=== PATIENT | male | born 1945 | race Caucasian/White ===

== ENCOUNTER 2023-01-23 14:56 | Observation (INO) | payer MEDICARE ==
--- NOTE | 2023-01-23 15:27 | ED ---
General Adult HPI - General Chief complaint: Chest Pain Stated complaint: Chest Pain/SOB Time Seen by Provider: 01/23/23 15:24 Source: patient, RN notes reviewed, old records reviewed Mode of arrival: wheelchair Limitations: no limitations - History of Present Illness Initial comments: 77-year-old male presents for evaluation of chest pain, dyspnea, and lightheadedness. Patient's symptoms began 3 days ago with slight chest discomfort. Just prior to arrival he developed worsening chest pain which is substernal accompanied by difficulty breathing and lightheadedness. Patient has history of CML and myelodysplastic syndrome. He states he is on a confusion but is uncertain of the drug that he is currently receiving. He does report dark stools and states that he is currently on iron. No recent change in stool color or consistency. - Related Data Home Medications Medication Instructions Recorded Confirmed Cholecalciferol [Vitamin D3 (25 50 mcg PO DAILY 01/23/23 01/23/23 Mcg = 1000 Iu)] Cyclobenzaprine [Flexeril] 5 mg PO HS 01/23/23 01/23/23 Ferrous Sulfate [Iron] 325 mg PO BID 01/23/23 01/23/23 Losartan Potassium [Cozaar] 100 mg PO DAILY 01/23/23 01/23/23 Rosuvastatin Calcium 5 mg PO HS 01/23/23 01/23/23 amLODIPine [Norvasc] 10 mg PO HS 01/23/23 01/23/23 hydroCHLOROthiazide [Hydrodiuril] 12.5 mg PO DAILY 01/23/23 01/23/23 Allergies Allergy/AdvReac Type Severity Reaction Status Date / Time influenza virus vaccine, Allergy Anaphylaxis Verified 01/23/23 16:52 specific mushroom Allergy Swelling Verified 01/23/23 16:52 Review of Systems ROS Statement: Those systems with pertinent positive or pertinent negative responses have been documented in the HPI. ROS Other: All systems not noted in ROS Statement are negative. Past Medical History Past Medical History: Cancer, Hypertension Additional Past Medical History / Comment(s): CMML History of Any Multi-Drug Resistant Organisms: None Reported Past Surgical History: Hernia Repair Additional Past Surgical History / Comment(s): nose, cataracts. 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 Absent: tenderness, meningismus Respiratory exam: Absent: respiratory distress, wheezes, rales Cardiovascular Exam: Present: normal rhythm, tachycardia GI/Abdominal exam: Present: soft. Absent: distended, tenderness, guarding Extremities exam: Present: normal inspection, normal capillary refill. Absent: pedal edema, calf tenderness Neurological exam: Present: alert, oriented X3, CN II-XII intact. Absent: motor sensory deficit Skin exam: Present: dry, pallor Course Vital Signs 01/23/23 14:59 Temperature 97.8 F Pulse Rate 111 H Respiratory 22 Rate Blood Pressure 142/84 O2 Sat by Pulse 100 Oximetry Medical Decision Making - Medical Decision Making Was pt. sent in by a medical professional or institution (, PA, SENIOR QUALITY CONTROL INSPECTOR, urgent care, hospital, or retirement...) When possible be specific @ -No Did you speak to anyone other than the patient for history (EMS, parent, family, police, friend...)? What history was obtained from this source @ -No Did you review nursing and triage notes (agree or disagree)? Why? @ -I reviewed and agree with nursing and triage notes Were old charts reviewed (outside hosp., previous admission, EMS record, old EKG, old radiological studies, urgent care reports/EKG's, retirement records)? Report findings @ -No old charts were reviewed Differential Diagnosis (chest pain, altered mental status, abdominal pain women, abdominal pain men, vaginal bleeding, weakness, fever, dyspnea, syncope, head ache, dizziness, GI bleed, back pain, seizure, CVA, palpatations, mental health, musculoskeletal)? @ -Differential Dyspnea: Coronary syndrome, arrhythmia, tamponade, asthma, COPD, pulmonary embolism, pneumonia, pneumothorax, pulmonary effusion, anaphylaxis, diabetic ketoacidosis, flailed chest, pulmonary contusion, diaphragmatic rupture, anemia, neuromuscular, this is not meant to be an all-inclusive list. EKG interpreted by me (3pts min.). @ -EKG: Sinus tachycardia with a rate of 107, occasional PVC, NH interval 182, QRS duration 80, QTc 383, no ST segment elevation T waves are upright X-rays interpreted by me (1pt min.). @ -Negative for pneumothorax or acute cardiac primary findings CT interpreted by me (1pt min.). @ -[Angiography negative for pulmonary embolism U/S interpreted by me (1pt. min.). @ -None done What testing was considered but not performed or refused? (CT, X-rays, U/S, labs)? Why? @ -None What meds were considered but not given or refused? Why? @ -None Did you discuss the management of the patient with other professionals (professionals i.e. , PA, SENIOR QUALITY CONTROL INSPECTOR, lab, RT, psych nurse, addiction social worker, doping supervisor, teacher, chief technology officer, child welfare caseworker)? Give summary @ -EMH Was smoking cessation discussed for >3mins.? @ -No Was critical care preformed (if so, how long)? @ -No Were there social determinants of health that impacted care today? How? (Homelessness, low income, unemployed, alcoholism, drug addiction, transportation, low edu. Level, literacy, decrease access to med. care, penitentiary, rehab)? @ -No Was there de-escalation of care discussed even if they declined (Discuss DNR or withdrawal of care, Hospice)? DNR status @ -No What co-morbidities impacted this encounter? (DM, HTN, Smoking, COPD, CAD, Cancer, CVA, ARF, Chemo, Hep., AIDS, mental health diagnosis, sleep apnea, morbid obesity)? @ -[MDS, CML Was patient admitted / discharged? Hospital course, mention meds given and route, prescriptions, significant lab abnormalities, going to OR and other pertinent info. @ -77-year-old male presenting for evaluation of chest pain, dyspnea, and lightheadedness. EKG sinus tachycardia. Patient has an anemia of 8 which she states is chronic. Patient has normal electrolytes, negative initial troponin. His d-dimer is significantly elevated and CT angiography is obtained which is negative for pulmonary embolism. Patient will be admitted for serial cardiac enzymes, telemetry, cardiology consultation. Echo has been ordered. Undiagnosed new problem with uncertain prognosis? @ -No Drug Therapy requiring intensive monitoring for toxicity (Heparin, Nitro, Insulin, Cardizem)? @ -No Were any procedures done? @ -No Diagnosis/symptom? @ -[Chest pain Acute, or Chronic, or Acute on Chronic? @ -[Acute Uncomplicated (without systemic symptoms) or Complicated (systemic symptoms)? @ -default Side effects of treatment? @ -No Exacerbation, Progression, or Severe Exacerbation? @ -No Poses a threat to life or bodily function? How? (Chest pain, [place], [place], pneumonia, PE, COPD, DKA, ARF, appy, cholecystitis, CVA, Diverticulitis, Homicidal, Suicidal, threat to staff... and all critical care pts) @ -[Yes, chest pain - Lab Data Result diagrams: 01/23/23 16:05 01/23/23 16:05 Lab Results 01/23/23 01/23/23 01/23/23 Range/Units 16:05 16:05 16:05 WBC 16.2 H (3.8-10.6) k/uL RBC 2.05 L (4.30-5.90) m/uL Hgb 8.0 L (13.0-17.5) gm/dL Hct 25.1 L (39.0-53.0) % MCV 122.4 H (80.0-100.0) fL MCH 39.2 H (25.0-35.0) pg MCHC 32.0 (31.0-37.0) g/dL RDW 15.1 (11.5-15.5) % Plt Count 80 L (150-450) k/uL MPV 12.2 Neutrophils % 76 % Lymphocytes % 18 % Monocytes % 4 % Eosinophils % 0 % Basophils % 0 % Neutrophils # 12.2 H (1.3-7.7) k/uL Lymphocytes # 3.0 (1.0-4.8) k/uL Monocytes # 0.7 (0-1.0) k/uL Eosinophils # 0.1 (0-0.7) k/uL Basophils # 0.1 (0-0.2) k/uL Manual Slide Review Performed Large Platelets Present Macrocytosis Marked A PT 10.5 (9.0-12.0) sec INR 1.0 (<1.2) APTT 22.6 (22.0-30.0) sec D-Dimer 2.76 H (<0.60) mg/L FEU Sodium 140 (137-145) mmol/L Potassium 4.1 (3.5-5.1) mmol/L Chloride 103 (98-107) mmol/L Carbon Dioxide 20 L (22-30) mmol/L Anion Gap 17 mmol/L BUN 30 H (9-20) mg/dL Creatinine 0.93 (0.66-1.25) mg/dL Est GFR (CKD-EPI)AfAm >90 (>60 ml/min/1.73 sqM) Est GFR (CKD-EPI)NonAf 80 (>60 ml/min/1.73 sqM) Glucose 87 (74-99) mg/dL Calcium 9.8 (8.4-10.2) mg/dL Magnesium 1.7 (1.6-2.3) mg/dL Total Bilirubin 0.5 (0.2-1.3) mg/dL AST 27 (17-59) U/L ALT 22 (4-49) U/L Alkaline Phosphatase 158 H (38-126) U/L Troponin I (0.000-0.034) ng/mL Total Protein 7.5 (6.3-8.2) g/dL Albumin 4.4 (3.5-5.0) g/dL Blood Type Blood Type Confirm Blood Type Recheck Bld Type Recheck Status Antibody Screen Spec Expiration Date 01/23/23 01/23/23 01/23/23 Range/Units 16:05 16:07 16:12 WBC (3.8-10.6) k/uL RBC (4.30-5.90) m/uL Hgb (13.0-17.5) gm/dL Hct (39.0-53.0) % MCV (80.0-100.0) fL MCH (25.0-35.0) pg MCHC (31.0-37.0) g/dL RDW (11.5-15.5) % Plt Count (150-450) k/uL MPV Neutrophils % % Lymphocytes % % Monocytes % % Eosinophils % % Basophils % % Neutrophils # (1.3-7.7) k/uL Lymphocytes # (1.0-4.8) k/uL Monocytes # (0-1.0) k/uL Eosinophils # (0-0.7) k/uL Basophils # (0-0.2) k/uL Manual Slide Review Large Platelets Macrocytosis PT (9.0-12.0) sec INR (<1.2) APTT (22.0-30.0) sec D-Dimer (<0.60) mg/L FEU Sodium (137-145) mmol/L Potassium (3.5-5.1) mmol/L Chloride (98-107) mmol/L Carbon Dioxide (22-30) mmol/L Anion Gap mmol/L BUN (9-20) mg/dL Creatinine (0.66-1.25) mg/dL Est GFR (CKD-EPI)AfAm (>60 ml/min/1.73 sqM) Est GFR (CKD-EPI)NonAf (>60 ml/min/1.73 sqM) Glucose (74-99) mg/dL Calcium (8.4-10.2) mg/dL Magnesium (1.6-2.3) mg/dL Total Bilirubin (0.2-1.3) mg/dL AST (17-59) U/L ALT (4-49) U/L Alkaline Phosphatase (38-126) U/L Troponin I <0.012 (0.000-0.034) ng/mL Total Protein (6.3-8.2) g/dL Albumin (3.5-5.0) g/dL Blood Type O Positive Blood Type Confirm O Positive Blood Type Recheck No Previous Record Bld Type Recheck Status CABO Indicated Antibody Screen NEGATIVE Spec Expiration Date 01/26/20232311 Disposition Clinical Impression: Chest pain Disposition: ADMITTED IP TO THIS HOSP Condition: Stable Is patient prescribed a controlled substance at d/c from ED?: No Referrals: None,Stated [REFERRING] - 1-2 days Time of Disposition: 18:12
[2023-01-23] MEDS ORDERED: SODIUM CHLORIDE 0.9% 500 ML 500 ML IV ONE (15:35)
[2023-01-23 16:19] LABS: Basophils # (A) 0.1 k/uL (0-0.2); Basophils % (A) 0 %; Eosinophils # (A) 0.1 k/uL (0-0.7); Eosinophils % (A) 0 %; HCT 25.1 % (39.0-53.0); Lymphocytes % (A) 18 %; MCH 39.2 pg (25.0-35.0); MCV 122.4 fL (80.0-100.0); Macrocytosis Marked; Mean Platelet Volume 12.2; Monocytes # (A) 0.7 k/uL (0-1.0); Monocytes % (A) 4 %; Neutrophils # (A) 12.2 k/uL (1.3-7.7); Neutrophils % (A) 76 %; RBC 2.05 m/uL (4.30-5.90); RDW 15.1 % (11.5-15.5); WBC 16.2 k/uL (3.8-10.6)
--- NOTE | 2023-01-23 16:30 | XR ---
EXAMINATION TYPE: XR chest 2V DATE OF EXAM: 01/23/2023 COMPARISON: None HISTORY: 77-year-old male with chest pain TECHNIQUE: PA and lateral views FINDINGS: Heart normal size. Minimal atherosclerotic arch calcifications. Slightly low lung volumes with crowde d vascular markings. No consolidation or pleural effusion. Loss of the subacromial space on the right compatible with chronic full-thickness rotator cuff tear. IMPRESSION: Hypoventilatory changes. No acute process seen.
[2023-01-23 16:32] LABS: ALT 22 U/L (4-49); AST 27 U/L (17-59); African American GFR (CKD) >90 (>60 ml/min/1.73 sqM); Albumin 4.4 g/dL (3.5-5.0); Alkaline Phosphatase 158 U/L (38-126); Anion Gap 17 mmol/L; Blood Urea Nitrogen 30 mg/dL (9-20); Calcium 9.8 mg/dL (8.4-10.2); Carbon Dioxide 20 mmol/L (22-30); Chloride 103 mmol/L (98-107); Glucose 87 mg/dL (74-99); Magnesium 1.7 mg/dL (1.6-2.3); Non-African American GFR(CKD) 80 (>60 ml/min/1.73 sqM); Potassium 4.1 mmol/L (3.5-5.1); Sodium 140 mmol/L (137-145); Total Bilirubin 0.5 mg/dL (0.2-1.3); Total Protein 7.5 g/dL (6.3-8.2)
[2023-01-23 16:51] LABS: Partial Thromboplastin Time 22.6 sec (22.0-30.0); Prothrombin Time 10.5 sec (9.0-12.0)
[2023-01-23 17:19] LABS: Large Platelets Present; Platelet Count 80 k/uL (150-450)
--- NOTE | 2023-01-23 17:57 | CT ---
EXAMINATION TYPE: CT chest angio for PE CT DLP: 427.8 mGycm, Automated exposure control for dose reduction was used. DATE OF EXAM: 01/23/2023 5:48 PM COMPARISON: Chest radiograph from same day. CLINICAL INDICATION:Male, 77 years old with history of sob/pos dimer; SOB, CP, dizziness, positive di crescencio. Denies cardiac hx. TECHNIQUE/CONTRAST: CTA scan of the thorax is performed with IV Contrast, patient injected with 100 mL of Isovue 300, pul monary embolism protocol. MIP images are created and reviewed these are [email or web address] FINDINGS: Pulmonary Artery: There is no evidence for a filling defect within the pulmonary vasculature to sugge st acute pulmonary embolism. The pulmonary artery is enlarged measuring up to 34 mm. Lungs/Pleura: No evidence of focal consolidation, pleural effusion or pneumothorax. Right upper lobe calcified granuloma Airway: Large airways are patent. Heart: Heart is within normal limits for size. Mild atherosclerosis of the coronary arterial vasculat ure. Vasculature: Mild atherosclerotic calcifications are present throughout the aorta and its branches. Mediastinum: No gross evidence of adenopathy. Musculoskeletal: Moderate degenerative disc disease changes are present throughout the thoracolumbar spine. Soft Tissues: Unremarkable. Lower neck: Enlarged thyroid gland which extends down to the superior mediastinum. Upper Abdomen: Probable right renal cyst partially visualized. IMPRESSION: 1. No evidence of pulmonary embolism. 2. Pulmonary hypertension.
[2023-01-23] MEDS ORDERED: ASPIRIN 325 MG TAB PO STA (18:00)
[2023-01-23] MEDS ORDERED: ONDANSETRON 4 MG/2 ML VIAL IVP PRN (18:08)
[2023-01-23] MEDS ORDERED: MORPHINE SULFATE 4 MG/ML SYRINGE IV PRN (18:08)
[2023-01-23] MEDS ORDERED: ACETAMINOPHEN TAB 325 MG TAB PO PRN (18:08)
[2023-01-23] MEDS ORDERED: NALOXONE 0.4 MG/ML 1 ML VIAL IV PRN (18:08)
[2023-01-23] MEDS: SODIUM CHLORIDE 0.9% 1,000 ML IV SCH (18:38)
[2023-01-23] MEDS: FERROUS SULFATE 325 MG TAB PO SCH (21:21)
[2023-01-23] MEDS: ATORVASTATIN 10 MG TAB PO SCH (21:21)
[2023-01-23] MEDS: amLODIPine 10 MG TAB PO SCH (21:21)
[2023-01-23] MEDS: CYCLOBENZAPRINE 5 MG TAB PO SCH (21:31)
[2023-01-24 06:39] LABS: Basophils % (A) 0 %; Eosinophils % (A) 0 %; HCT 21.8 % (39.0-53.0); HGB 7.1 gm/dL (13.0-17.5); Hypochromasia Slight; Lymphocytes # (A) 3.4 k/uL (1.0-4.8); Lymphocytes % (A) 20 %; MCH 40.7 pg (25.0-35.0); MCHC 32.6 g/dL (31.0-37.0); MCV 124.9 fL (80.0-100.0); Macrocytosis Marked; Mean Platelet Volume 9.7; Monocytes # (A) 0.7 k/uL (0-1.0); Monocytes % (A) 4 %; Neutrophils # (A) 12.3 k/uL (1.3-7.7); Neutrophils % (A) 74 %; RBC 1.74 m/uL (4.30-5.90); RDW 15.2 % (11.5-15.5); WBC 16.7 k/uL (3.8-10.6)
[2023-01-24 07:01] LABS: ALT 20 U/L (4-49); AST 22 U/L (17-59); African American GFR (CKD) 88 (>60 ml/min/1.73 sqM); Albumin 3.7 g/dL (3.5-5.0); Albumin/Globulin Ratio 1.3; Alkaline Phosphatase 139 U/L (38-126); Anion Gap 10 mmol/L; Blood Urea Nitrogen 22 mg/dL (9-20); Calcium 8.9 mg/dL (8.4-10.2); Carbon Dioxide 25 mmol/L (22-30); Chloride 105 mmol/L (98-107); Globulin 2.8 g/dL; Glucose 83 mg/dL (74-99); Magnesium 1.6 mg/dL (1.6-2.3); Non-African American GFR(CKD) 76 (>60 ml/min/1.73 sqM); Potassium 4.4 mmol/L (3.5-5.1); Sodium 140 mmol/L (137-145); Total Bilirubin 0.3 mg/dL (0.2-1.3); Total Protein 6.5 g/dL (6.3-8.2)
[2023-01-24 07:06] LABS: Platelet Count 73 k/uL (150-450)
[2023-01-24 08:30] LABS: Dohle Bodies Present; Toxic Granulation Present
--- NOTE | 2023-01-24 09:46 | P.CRDCN ---
History of Present Illness Consult date: 01/24/23 Chief complaint: CP History of present illness: The patient is a pleasant 77-year-old gentleman with a past medical history significant for hypertension and dyslipidemia and history of CML currently he is on therapy as well as chronic anemia presented to the hospital complaining of chest discomfort and shortness of breath. He was celebrating with his family yesterday and [place] from [place] when he started experiencing shortness of breath and chest discomfort. He was brought to the emergency department where he underwent a workup came in to be completely unremarkable. That included computed tomography scan of the chest showed no pulmonary embolism an EKG showing sinus mechanism was no ischemic changes and cardiac enzymes came in to be unremarkable and chest x-ray did not show any acute abnormalities. No coronary artery disease or congestive heart failure or cardiac arrhythmia. He is blood work showed severe anemia with a hemoglobin of 7.1. He is slightly tachycardic and I believe that the chest discomfort and the tachycardia are related to the anemia. I'm going to start him on small dose of beta sushil. An echocardiogram is performed already The physical examination is remarkable for sinus tachycardia Assessment Chest discomfort which has improved Shortness of breath which has improved slight sinus tachycardia Chronic anemia Hypertension Dyslipidemia Plan Acute coronary event was ruled out Start the patient on small dose of beta sushil Follow-up on the echocardiogram Advise monitoring the patient for additional 24 hours Past Medical History Past Medical History: Cancer, Hypertension Additional Past Medical History / Comment(s): CMML History of Any Multi-Drug Resistant Organisms: None Reported Past Surgical History: Hernia Repair Additional Past Surgical History / Comment(s): nose, cataracts. 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 Smoking Status: Never smoker Past Alcohol Use History: None Reported Past Drug Use History: None Reported Medications and Allergies Home Medications Medication Instructions Recorded Confirmed Type Cholecalciferol [Vitamin D3 (25 50 mcg PO DAILY 01/23/23 01/23/23 History Mcg = 1000 Iu)] Cyclobenzaprine [Flexeril] 5 mg PO HS 01/23/23 01/23/23 History Ferrous Sulfate [Iron] 325 mg PO BID 01/23/23 01/23/23 History Losartan Potassium [Cozaar] 100 mg PO DAILY 01/23/23 01/23/23 History Rosuvastatin Calcium 5 mg PO HS 01/23/23 01/23/23 History amLODIPine [Norvasc] 10 mg PO HS 01/23/23 01/23/23 History hydroCHLOROthiazide [Hydrodiuril] 12.5 mg PO DAILY 01/23/23 01/23/23 History Allergies Allergy/AdvReac Type Severity Reaction Status Date / Time influenza virus vaccine, Allergy Anaphylaxis Verified 01/23/23 16:52 specific mushroom Allergy Swelling Verified 01/23/23 16:52 Physical Exam Vitals: Vital Signs Temp Pulse Pulse Resp BP BP Pulse Ox 01/24/23 07:55 97 01/24/23 07:00 99.0 F 103 H 18 125/80 96 01/24/23 02:00 98 F 109 H 97 H 118/69 97 01/23/23 21:15 98.1 F 110 H 17 117/70 97 01/23/23 19:00 109 H 17 127/76 98 01/23/23 18:00 105 H 10 L 138/78 98 01/23/23 17:00 106 H 13 127/84 98 01/23/23 16:00 109 H 16 148/86 97 01/23/23 14:59 97.8 F 111 H 22 142/84 100 Intake and Output 01/23/23 01/24/23 01/24/23 22:59 06:59 14:59 Other: # Voids 1 3 Weight 90.718 kg Results 01/24/23 06:02 01/24/23 06:02 Cardiac Enzymes 01/23/23 01/23/23 01/23/23 Range/Units 16:05 16:05 20:46 AST 27 (17-59) U/L Troponin I <0.012 <0.012 (0.000-0.034) ng/mL 01/24/23 01/24/23 Range/Units 00:07 06:02 AST 22 (17-59) U/L Troponin I <0.012 (0.000-0.034) ng/mL Coagulation 01/23/23 Range/Units 16:05 PT 10.5 (9.0-12.0) sec APTT 22.6 (22.0-30.0) sec CBC 01/23/23 01/24/23 Range/Units 16:05 06:02 WBC 16.2 H 16.7 H (3.8-10.6) k/uL RBC 2.05 L 1.74 L (4.30-5.90) m/uL Hgb 8.0 L 7.1 L (13.0-17.5) gm/dL Hct 25.1 L 21.8 L (39.0-53.0) % Plt Count 80 L 73 L (150-450) k/uL Comprehensive Metabolic Panel 01/23/23 01/24/23 Range/Units 16:05 06:02 Sodium 140 140 (137-145) mmol/L Potassium 4.1 4.4 (3.5-5.1) mmol/L Chloride 103 105 (98-107) mmol/L Carbon Dioxide 20 L 25 (22-30) mmol/L BUN 30 H 22 H (9-20) mg/dL Creatinine 0.93 0.98 (0.66-1.25) mg/dL Glucose 87 83 (74-99) mg/dL Calcium 9.8 8.9 (8.4-10.2) mg/dL AST 27 22 (17-59) U/L ALT 22 20 (4-49) U/L Alkaline Phosphatase 158 H 139 H (38-126) U/L Total Protein 7.5 6.5 (6.3-8.2) g/dL Albumin 4.4 3.7 (3.5-5.0) g/dL Current Medications Generic Name Dose Route Start Last Admin Trade Name Freq PRN Reason Stop Dose Admin Acetaminophen 650 mg 01/23/23 18:08 Acetaminophen Tab 325 Mg Tab PO Q6HR PRN Mild Pain or Fever > 100.5 Amlodipine Besylate 10 mg 01/23/23 21:00 01/23/23 21:21 Amlodipine 10 Mg Tab PO 10 mg HS SARA Administration Atorvastatin Calcium 10 mg 01/23/23 21:00 01/23/23 21:21 Atorvastatin 10 Mg Tab PO 10 mg HS SARA Administration Cholecalciferol 50 mcg 01/24/23 09:00 Cholecalciferol 25 Mcg (1000 Iu) Tablet PO DAILY SARA Cyclobenzaprine HCl 5 mg 01/23/23 21:00 01/23/23 21:31 Cyclobenzaprine 5 Mg Tab PO 5 mg HS SARA Administration Ferrous Sulfate 325 mg 01/23/23 21:00 01/23/23 21:21 Ferrous Sulfate 325 Mg Tab PO 325 mg BID SARA Administration Sodium Chloride 1,000 mls @ 75 mls/hr 01/23/23 18:15 01/23/23 18:38 Saline 0.9% IV 75 mls/hr .[id number] SARA Administration Morphine Sulfate 4 mg 01/23/23 18:08 Morphine Sulfate 4 Mg/Ml Syringe IV Q4HR PRN Severe Pain (Scale 7 to 10) Naloxone HCl 0.2 mg 01/23/23 18:08 Naloxone 0.4 Mg/Ml 1 Ml Vial IV Q2M PRN Opioid Reversal Ondansetron HCl 4 mg 01/23/23 18:08 Ondansetron 4 Mg/2 Ml Vial IVP Q8HR PRN Nausea And Vomiting Intake and Output 01/23/23 01/24/23 01/24/23 22:59 06:59 14:59 Other: # Voids 1 3 Weight 90.718 kg 01/24/23 06:02 01/24/23 06:02
[2023-01-24] MEDS: METOPROLOL SUCCINATE (ER) 25 MG TAB.ER.24H PO SCH (10:37)
[2023-01-24] MEDS: FERROUS SULFATE 325 MG TAB PO SCH ×2 (10:37→20:16)
[2023-01-24] MEDS: CHOLECALCIFEROL 25 MCG (1000 IU) TABLET PO SCH (10:37)
[2023-01-24] MEDS: SODIUM CHLORIDE 0.9% 1,000 ML IV SCH ×2 (10:39→20:16)
--- NOTE | 2023-01-24 11:50 | P.HPIM ---
History of Present Illness 75-year-old the male admitted with the precordial chest pain pressure-like sensation on and off low severity. Patient had EKG which did not show any acute ST-T wave changes chest x-ray is within normal limits. Patient is found to have severe anemia with hemoglobin of 7.1. Patient does have history of CML unsure what therapy patient is on unable to provide me any further information. Echocardiac exam is pending. Chest discomfort improved at this time. REVIEW OF SYSTEMS: CONSTITUTIONAL: No fever, no malaise, no fatigue. HEENT: No recent visual problems or hearing problems. Denied any sore throat. CARDIOVASCULAR: No orthopnea, PND, no palpitations, no syncope. PULMONARY: No shortness of breath, no cough, no hemoptysis. GASTROINTESTINAL: No diarrhea, no nausea, no vomiting, no abdominal pain. NEUROLOGICAL: No headaches, no weakness, no numbness. HEMATOLOGICAL: Denies any bleeding or petechiae. GENITOURINARY: Denies any burning micturition, frequency, or urgency. MUSCULOSKELETAL/RHEUMATOLOGICAL: Denies any joint pain, swelling, or any muscle pain. ENDOCRINE: Denies any polyuria or polydipsia. The rest of the 14-point review of systems is negative. PHYSICAL EXAMINATION: GENERAL: The patient is alert and oriented x3, not in any acute distress. Well developed, well nourished. HEENT: Pupils are round and equally reacting to light. EOMI. No scleral icterus. Does have conjunctival pallor. Normocephalic, atraumatic. No pharyngeal erythema. No thyromegaly. CARDIOVASCULAR: S1 and S2 present. No murmurs, rubs, or gallops. PULMONARY: Chest is clear to auscultation, no wheezing or crackles. ABDOMEN: Soft, nontender, nondistended, normoactive bowel sounds. No palpable organomegaly. MUSCULOSKELETAL: No joint swelling or deformity. EXTREMITIES: No cyanosis, clubbing, or pedal edema. NEUROLOGICAL: Gross neurological examination did not reveal any focal deficits. SKIN: No rashes. Assessment and plan -Chest discomfort which improved rule out a concurrent syndromes was believed that anemia may be contributing to some of his pain, we'll consult oncology see if blood transfusion will help and if so patient will need irradiated blood. Pending echocardiogram -tachycardia, sinus tachycardia probably secondary to anemia cardiology ordered metoprolol which will be continued will may need 1 unit of PRBC transfusion -Hypertension -Hyperlipidemia -Anemia may be subacute without any evidence of acute blood loss may be related to CMML treatment. -Chronic myeloid leukemia -Elevated MCV etiology is not known, hematology evaluation DVT prophylaxis: Early ambulation Past Medical History Past Medical History: Cancer, Hypertension Additional Past Medical History / Comment(s): CMML History of Any Multi-Drug Resistant Organisms: None Reported Past Surgical History: Hernia Repair Additional Past Surgical History / Comment(s): nose, cataracts. 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 Smoking Status: Never smoker Past Alcohol Use History: None Reported Past Drug Use History: None Reported Medications and Allergies Home Medications Medication Instructions Recorded Confirmed Type Cholecalciferol [Vitamin D3 (25 50 mcg PO DAILY 01/23/23 01/23/23 History Mcg = 1000 Iu)] Cyclobenzaprine [Flexeril] 5 mg PO HS 01/23/23 01/23/23 History Ferrous Sulfate [Iron] 325 mg PO BID 01/23/23 01/23/23 History Losartan Potassium [Cozaar] 100 mg PO DAILY 01/23/23 01/23/23 History Rosuvastatin Calcium 5 mg PO HS 01/23/23 01/23/23 History amLODIPine [Norvasc] 10 mg PO HS 01/23/23 01/23/23 History hydroCHLOROthiazide [Hydrodiuril] 12.5 mg PO DAILY 01/23/23 01/23/23 History Allergies Allergy/AdvReac Type Severity Reaction Status Date / Time influenza virus vaccine, Allergy Anaphylaxis Verified 01/23/23 16:52 specific mushroom Allergy Swelling Verified 01/23/23 16:52 Physical Exam Vitals: Vital Signs Temp Pulse Pulse Resp BP BP Pulse Ox 01/24/23 07:55 97 01/24/23 07:00 99.0 F 103 H 18 125/80 96 01/24/23 02:00 98 F 109 H 97 H 118/69 97 01/23/23 21:15 98.1 F 110 H 17 117/70 97 01/23/23 19:00 109 H 17 127/76 98 01/23/23 18:00 105 H 10 L 138/78 98 01/23/23 17:00 106 H 13 127/84 98 01/23/23 16:00 109 H 16 148/86 97 01/23/23 14:59 97.8 F 111 H 22 142/84 100 Intake and Output 01/23/23 01/24/23 01/24/23 22:59 06:59 14:59 Other: # Voids 1 3 Weight 90.718 kg Results CBC & Chem 7: 01/24/23 06:02 01/24/23 06:02 Labs: Abnormal Lab Results - Last 24 Hours (Table) 01/23/23 01/23/23 01/23/23 Range/Units 16:05 16:05 16:05 WBC 16.2 H (3.8-10.6) k/uL RBC 2.05 L (4.30-5.90) m/uL Hgb 8.0 L (13.0-17.5) gm/dL Hct 25.1 L (39.0-53.0) % MCV 122.4 H (80.0-100.0) fL MCH 39.2 H (25.0-35.0) pg Plt Count 80 L (150-450) k/uL Neutrophils # 12.2 H (1.3-7.7) k/uL Macrocytosis Marked A D-Dimer 2.76 H (<0.60) mg/L FEU Carbon Dioxide 20 L (22-30) mmol/L BUN 30 H (9-20) mg/dL Alkaline Phosphatase 158 H (38-126) U/L 01/24/23 01/24/23 Range/Units 06:02 06:02 WBC 16.7 H (3.8-10.6) k/uL RBC 1.74 L (4.30-5.90) m/uL Hgb 7.1 L (13.0-17.5) gm/dL Hct 21.8 L (39.0-53.0) % MCV 124.9 H (80.0-100.0) fL MCH 40.7 H (25.0-35.0) pg Plt Count 73 L (150-450) k/uL Neutrophils # 12.3 H (1.3-7.7) k/uL Macrocytosis Marked A D-Dimer (<0.60) mg/L FEU Carbon Dioxide (22-30) mmol/L BUN 22 H (9-20) mg/dL Alkaline Phosphatase 139 H (38-126) U/L
--- NOTE | 2023-01-24 12:06 | CA ---
Transthoracic Echo Report Name: Patrick Treadwell Age: 77 Gender: M : 1945 Exam Date: 01/24/2023 07:18 Exam Location: [facility] Ht (in): 71 Wt (lb): 200 Ordering Physician: Young Kapoor MD Attending/Referring Phys: [id number], Antwon [employer] Supervisor Rae Bazzi RDCS Procedure CPT: Indications: CP Cardiac Hx: Technical Quality: Good Contrast 1: Total Dose (mL): Contrast 2: Total Dose (mL): MEASUREMENTS (Male / Female) Normal Values 2D ECHO LV Diastolic Diameter PLAX 4.9 cm 4.2 - 5.9 / 3.9 - 5.3 cm LV Systolic Diameter PLAX 3.0 cm IVS Diastolic Thickness 1.1 cm 0.6 - 1.0 / 0.6 - 0.9 cm LVPW Diastolic Thickness 1.2 cm 0.6 - 1.0 / 0.6 - 0.9 cm LV Relative Wall Thickness 0.5 RV Internal Dim ED PLAX 3.1 cm LVOT Diameter 2.3 cm LA Systolic Diameter LX 3.5 cm 3.0 - 4.0 / 2.7 - 3.8 cm LV Diastolic Volume MOD BP 89.0 cm??? 67 - 155 / 56 - 104 cm??? LV Systolic Volume MOD BP 26.5 cm??? - 58 / 19 - 49 cm??? LV Ejection Fraction MOD BP 70.2 % >= 55 % LV Cardiac Index MOD BP 3054.0 cm???/min???m??? LV Diastolic Volume MOD 4C 79.6 cm??? LV Systolic Volume MOD 4C 25.0 cm??? LV Ejection Fraction MOD 4C 68.6 % LV Cardiac Index MOD 4C 2667.7 cm???/min???m??? LV Diastolic Length 4C 7.6 cm LV Systolic Length 4C 6.0 cm LV Diastolic Volume MOD 2C 99.3 cm??? LV Systolic Volume MOD 2C 32.6 cm??? LV Ejection Fraction MOD 2C 67.2 % LV Cardiac Index MOD 2C 3261.7 cm???/min???m??? LV Diastolic Length 2C 7.8 cm LV Systolic Length 2C 7.0 cm LA Volume 65.3 cm??? 18 - 58 / 22 - 52 cm??? DOPPLER AV Peak Velocity 226.2 cm/s AV Peak Gradient 20.5 mmHg AV Mean Velocity 161.5 cm/s AV Mean Gradient 11.4 mmHg AV Velocity Time Integral 42.8 cm AI Peak Velocity 405.8 cm/s AI Peak Gradient 65.9 mmHg AI Pressure Half Time 506.1 ms LVOT Peak Velocity 134.6 cm/s LVOT Peak Gradient 7.2 mmHg AV Area Cont Eq pk 2.4 cm??? MV Area PHT 3.5 cm??? Mitral E Point Velocity 103.0 cm/s Mitral A Point Velocity 134.6 cm/s Mitral E to A Ratio 0.8 MV Deceleration Time 215.7 ms MV E' Velocity 10.5 cm/s Mitral E to MV E' Ratio 9.8 TR Peak Velocity 291.0 cm/s TR Peak Gradient 33.9 mmHg Right Ventricular Systolic Press 38.7 mmHg FINDINGS Left Ventricle Left ventricular ejection fraction is estimated at 60-65 %. Left ventricular cavity size normal. Mildly increased septal wall thickness. Right Ventricle Normal right ventricular size and function. Mild pulmonary hypertension. Right Atrium Normal right atrial size. Left Atrium Mildly increased left atrial volume. Mildly increased left atrial area. Mitral Valve Structurally normal mitral valve. No mitral stenosis, regurgitation or prolapse. Aortic Valve Trileaflet aortic valve. Focal thickening of the aortic valve cusps. Mild aortic stenosis with a peak gradient of 21 mmHg and a mean gradient of 11 mmHg. [id number] aortic regurgitation. Tricuspid Valve Structurally normal tricuspid valve. Mild tricuspid regurgitation. Pulmonic Valve Structurally normal pulmonic valve. No pulmonic regurgitation. Pericardium Normal pericardium. No pericardial effusion. Aorta Mild aortic dilatation at the level of the sinuses of valsalva 39 mm CONCLUSIONS Normal biventricular dimension and systolic function Mild LVH Aortic sclerosis with mild aortic stenosis and mild to moderate aortic insufficiency Previewed by: Dr. Fernando Ayala MD (Electronically Signed) Final Date: 24 January 2023 12:05
--- NOTE | 2023-01-24 12:52 | P.CONS ---
History of Present Illness - Reason for Consult Consult date: 01/24/23 History of CMML - Chief Complaint Chest pain - History of Present Illness Mr. Treadwell is a 77-year-old gentleman with a past medical history significant for CMML who recently started cycle 1 of hypomethylating agent (likely decitabine) approximately 1 to 2 weeks ago through the care of Dr. Fairchild of hematology/oncology at [facility] in [place] who initially presented with chest discomfort. He notes he was playing miniature golf with his family on 01/23/2023 for his grandsons 13th birthday when he bent down to put a ball on the katharine, when he experienced sternal chest discomfort. He described as someone punching him in the chest. He did have lightheadedness/dizziness at that time. He rested and drink an electrolyte beverage, which brought mild relief, but then the discomfort returned. That is when he was brought to the ED for additional management. In the ED, he was noted to be tachycardic, with heart rates ranging between the 100s to 110. CBC on admission was notable for hemoglobin of 8, platelets 80, and WBC 16.2. EKG noted sinus tachycardia with occasional PVCs. Troponin was negative x3. CT angio revealed no evidence of pulmonary embolism, but did note pulmonary hypertension. He was admitted to internal medicine for additional management. CBC on today's labs notes hemoglobin 7.1, platelets 73, WBC 16.7 (ANC 12.3). He did note some dyspnea on exertion in the room today while closing curtains. He does note some increased fatigue compared to his baseline. Review of Systems 14 point review of systems conducted with pertinent positives and negatives as noted per HPI Past Medical History Past Medical History: Cancer, Hypertension Additional Past Medical History / Comment(s): CMML History of Any Multi-Drug Resistant Organisms: None Reported Past Surgical History: Hernia Repair Additional Past Surgical History / Comment(s): nose, cataracts. 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 Smoking Status: Never smoker Past Alcohol Use History: None Reported Past Drug Use History: None Reported Medications and Allergies Home Medications Medication Instructions Recorded Confirmed Type Cholecalciferol [Vitamin D3 (25 50 mcg PO DAILY 01/23/23 01/23/23 History Mcg = 1000 Iu)] Cyclobenzaprine [Flexeril] 5 mg PO HS 01/23/23 01/23/23 History Ferrous Sulfate [Iron] 325 mg PO BID 01/23/23 01/23/23 History Losartan Potassium [Cozaar] 100 mg PO DAILY 01/23/23 01/23/23 History Rosuvastatin Calcium 5 mg PO HS 01/23/23 01/23/23 History amLODIPine [Norvasc] 10 mg PO HS 01/23/23 01/23/23 History hydroCHLOROthiazide [Hydrodiuril] 12.5 mg PO DAILY 01/23/23 01/23/23 History Allergies Allergy/AdvReac Type Severity Reaction Status Date / Time influenza virus vaccine, Allergy Anaphylaxis Verified 01/23/23 16:52 specific mushroom Allergy Swelling Verified 01/23/23 16:52 Physical Exam Vitals: Vital Signs Temp Pulse Pulse Resp BP BP Pulse Ox 01/24/23 07:55 97 01/24/23 07:00 99.0 F 103 H 18 125/80 96 01/24/23 02:00 98 F 109 H 97 H 118/69 97 01/23/23 21:15 98.1 F 110 H 17 117/70 97 01/23/23 19:00 109 H 17 127/76 98 01/23/23 18:00 105 H 10 L 138/78 98 01/23/23 17:00 106 H 13 127/84 98 01/23/23 16:00 109 H 16 148/86 97 01/23/23 14:59 97.8 F 111 H 22 142/84 100 Intake and Output 01/23/23 01/24/23 01/24/23 22:59 06:59 14:59 Other: # Voids 1 3 Weight 90.718 kg - Constitutional Seated in chair, appears pale General appearance: cooperative, no acute distress - Respiratory Respiratory: bilateral: CTA - Cardiovascular Regular tachycardia noted, no murmurs Rhythm: regular - Gastrointestinal General gastrointestinal: no distended, soft - Integumentary Integumentary: pale - Neurologic Neurologic: CNII-XII intact - Psychiatric Psychiatric: A&O x's 3, appropriate affect Results CBC & Chem 7: 01/24/23 06:02 01/24/23 06:02 Labs: Abnormal Lab Results - Last 24 Hours (Table) 01/23/23 01/23/23 01/23/23 Range/Units 16:05 16:05 16:05 WBC 16.2 H (3.8-10.6) k/uL RBC 2.05 L (4.30-5.90) m/uL Hgb 8.0 L (13.0-17.5) gm/dL Hct 25.1 L (39.0-53.0) % MCV 122.4 H (80.0-100.0) fL MCH 39.2 H (25.0-35.0) pg Plt Count 80 L (150-450) k/uL Neutrophils # 12.2 H (1.3-7.7) k/uL Macrocytosis Marked A D-Dimer 2.76 H (<0.60) mg/L FEU Carbon Dioxide 20 L (22-30) mmol/L BUN 30 H (9-20) mg/dL Alkaline Phosphatase 158 H (38-126) U/L Crossmatch 01/23/23 01/24/23 01/24/23 Range/Units 16:12 06:02 06:02 WBC 16.7 H (3.8-10.6) k/uL RBC 1.74 L (4.30-5.90) m/uL Hgb 7.1 L (13.0-17.5) gm/dL Hct 21.8 L (39.0-53.0) % MCV 124.9 H (80.0-100.0) fL MCH 40.7 H (25.0-35.0) pg Plt Count 73 L (150-450) k/uL Neutrophils # 12.3 H (1.3-7.7) k/uL Macrocytosis Marked A D-Dimer (<0.60) mg/L FEU Carbon Dioxide (22-30) mmol/L BUN 22 H (9-20) mg/dL Alkaline Phosphatase 139 H (38-126) U/L Crossmatch See Detail Chest x-ray: report reviewed, image reviewed Assessment and Plan (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 Current Visit: Yes Status: Acute Code(s): C93.10 - CHRONIC MYELOMONOCYTIC LEUKEMIA NOT ACHIEVE REMISSION SNOMED Code(s): 194878252 (2) Anemia associated with chemotherapy Current Visit: Yes Status: Acute Code(s): D64.81 - ANEMIA DUE TO ANTINEOPLASTIC CHEMOTHERAPY; T45.1X5A - ADVERSE EFFECT OF ANTINEOPLASTIC AND IMMUNOSUP DRUGS, INIT SNOMED Code(s): 713180427954159 (3) Chemotherapy-induced thrombocytopenia Current Visit: Yes Status: Acute Code(s): D69.59 - OTHER SECONDARY THROMBOCYTOPENIA; T45.1X5A - ADVERSE EFFECT OF ANTINEOPLASTIC AND IMMUNOSUP DRUGS, INIT SNOMED Code(s): 190532754 (4) Chest pain Current Visit: Yes Status: Acute Code(s): R07.9 - CHEST PAIN, UNSPECIFIED SNOMED Code(s): 69715207 Plan: #Macrocytic anemia, thrombocytopenia, chest pain -Per Mr. Treadwell, he received cycle 1 of hypomethylating agent, believed to be either on 01/12/2023 or the week prior for CMML -He presented with chest discomfort and associated dizziness/lightheadedness with negative cardiac work-up and hemoglobin 7.1 and MCV 124.9 -Platelet count on today's visit is 73 -He likely has chemotherapy-induced anemia secondary to treatment for CMML for which he is symptomatic in addition to thrombocytopenia secondary to chemotherapy -I did recommend 1 unit of irradiated packed red blood cells. We discussed the necessity for irradiated blood given that he is on active treatment to reduce the risk of transfusion related [id number] disease. Following this discussion, he was agreeable to transfusion -Order for irradiated packed red blood cells along with type and screen placed -Transfuse for hemoglobin less than 8 and/or platelet count less than 10,000 and/or bleeding -As long as he is symptomatically improved following transfusion, he would be cleared for discharge from a hematology perspective #CMML -Received cycle 1 of hypomethylating agent with his primary teleprinter Dr. Fairchild in [place] -He will continue to follow with Dr. Fairchild We will continue to follow. Thank you for allowing us to participate in Mr. Treadwell's care.
[2023-01-24] MEDS: amLODIPine 10 MG TAB PO SCH (20:16)
[2023-01-24] MEDS: CYCLOBENZAPRINE 5 MG TAB PO SCH (20:16)
[2023-01-24] MEDS: ATORVASTATIN 10 MG TAB PO SCH (20:16)
[2023-01-25 08:00] VITALS: BP 130/73; PULSE 97; RESP 16; TEMP 98.1
[2023-01-25] MEDS: FERROUS SULFATE 325 MG TAB PO SCH (08:12)
[2023-01-25] MEDS: CHOLECALCIFEROL 25 MCG (1000 IU) TABLET PO SCH (08:12)
[2023-01-25] MEDS: METOPROLOL SUCCINATE (ER) 25 MG TAB.ER.24H PO SCH (08:12)
[2023-01-25] MEDS: SODIUM CHLORIDE 0.9% 1,000 ML IV SCH (10:11)
[2023-01-25 10:12] LABS: Anisocytosis Slight; Basophils % (A) 0 %; Eosinophils # (A) 0.1 k/uL (0-0.7); Eosinophils % (A) 1 %; HCT 24.2 % (39.0-53.0); HGB 7.9 gm/dL (13.0-17.5); Hypochromasia Slight; Lymphocytes # (A) 2.9 k/uL (1.0-4.8); Lymphocytes % (A) 27 %; MCH 38.8 pg (25.0-35.0); MCHC 32.7 g/dL (31.0-37.0); Macrocytosis Marked; Mean Platelet Volume 10.4; Monocytes # (A) 0.5 k/uL (0-1.0); Monocytes % (A) 4 %; Neutrophils # (A) 7.2 k/uL (1.3-7.7); Neutrophils % (A) 67 %; RBC 2.04 m/uL (4.30-5.90); RDW 19.2 % (11.5-15.5); WBC 10.7 k/uL (3.8-10.6)
[2023-01-25 10:21] LABS: MCV 118.4 fL (80.0-100.0)
[2023-01-25 10:22] LABS: Platelet Count 67 k/uL (150-450)
--- NOTE | 2023-01-25 11:30 | P.PN ---
Subjective Progress Note Date: 01/25/23 Principal diagnosis: Chest pain and shortness of breath The patient is a pleasant 77-year-old gentleman with a past medical history significant for hypertension and dyslipidemia and history of CML currently he is on therapy as well as chronic anemia presented to the hospital complaining of chest discomfort and shortness of breath. He was celebrating with his family yesterday and he is from out of the [place] when he started experiencing shortness of breath and chest discomfort. He was brought to the emergency department where he underwent a workup came in to be completely unremarkable. That included computed tomography scan of the chest showed no pulmonary embolism an EKG showing sinus mechanism was no ischemic changes and cardiac enzymes came in to be unremarkable and chest x-ray did not show any acute abnormalities. No coronary artery disease or congestive heart failure or cardiac arrhythmia. He is blood work showed severe anemia with a hemoglobin of 7.1. He is slightly tachycardic and I believe that the chest discomfort and the tachycardia are related to the anemia. I'm going to start him on small dose of beta sushil. An echocardiogram is performed already The physical examination is remarkable for sinus tachycardia 01/25/2023 The patient was seen this morning. He is feeling better at this is one unit of packed RBC. The echo showed normal biventricular dimension and systolic function was mild to moderate aortic stenosis and regurgitation. The chest discomfort and shortness of breath have resolved. He was started on small dose of beta sushil with improvement in the heart rate. From the cardiovascular standpoint of view, the patient Be discharged home Assessment Chest discomfort which has improved Shortness of breath which has improved slight sinus tachycardia Chronic anemia Hypertension Dyslipidemia Plan Acute coronary event was ruled out The patient can be discharged home Objective - Vital Signs Vital signs: Vital Signs Temp 98.1 F 01/25/23 07:00 Pulse 97 01/25/23 07:00 Resp 16 01/25/23 07:00 BP 130/73 01/25/23 07:00 Pulse Ox 98 01/25/23 09:25 FiO2 Intake & Output 01/24/23 01/25/23 01/25/23 18:59 06:59 18:59 Intake Total 0 310 Balance 0 310 Intake: Blood Product 0 310 Rc Irr As1 Unit 0 310 [id number] Other: # Voids 1 2 - Labs CBC & Chem 7: 01/25/23 09:37 01/24/23 06:02 Labs: Abnormal Lab Results - Last 24 Hours (Table) 01/23/23 01/25/23 Range/Units 16:12 09:37 WBC 10.7 H (3.8-10.6) k/uL RBC 2.04 L (4.30-5.90) m/uL Hgb 7.9 L (13.0-17.5) gm/dL Hct 24.2 L (39.0-53.0) % MCV 118.4 H D (80.0-100.0) fL MCH 38.8 H (25.0-35.0) pg RDW 19.2 H (11.5-15.5) % Plt Count 67 L (150-450) k/uL Macrocytosis Marked A Crossmatch See Detail
--- NOTE | 2023-01-25 15:25 | P.DS ---
Providers Date of admission: 01/23/23 18:09 Attending physician: Candelaria Asher Consults: 01/23/23 18:08 Consult Physician Routine Consulting Provider: Sunny Montiel Consult Reason/Comments: CP Do you want consulting provider notified?: Yes 01/24/23 09:59 Consult Physician Routine Consulting Provider: Petr Hough Consult Reason/Comments: Anemia, transfusison recomendations, CMML, tachycardia Do you want consulting provider notified?: Yes Primary care physician: Physician Nonstaff Hospital Course: Final Diagnosis -Chest discomfort improved, ACS ruled out symptoms likely due to anemia -tachycardia, sinus tachycardia probably secondary to anemia cardiology ordered metoprolol -Pulmonary hypertension and mild aortic stenosis -Hypertension -Hyperlipidemia -Anemia may be subacute without any evidence of acute blood loss may be related to CMML treatment. s/p 1 unit of irradiated packed red blood cells -Chronic myeloid leukemia -Elevated MCV etiology is not known, hematology evaluation DVT prophylaxis: Early ambulation Full Code Discharge Disposition Patient is stable for discharge home. Recommended to follow up with his known oncologist. Patient to repeat labs in 2 to 3 days. Patient has been cleared by cardiology . Started on metoprolol with improvement in heart rate and will continue on discharge. Follow up with cardiology on on discharge as well. Hospital Course This is a 75-year-old the male admitted with the precordial chest pain pressure- like sensation on and off low severity. Patient had EKG which did not show any acute ST-T wave changes chest x-ray is within normal limits. Patient is found to have severe anemia with hemoglobin of 7.1. Patient does have history of CML and currently undergoing treatment. Patient was admitted for the anemia and consulted placed to oncology and cardiology evaluated for the chest pain. Patient had chest CTA done which is negative for pulmonary embolism, there is evidence of pulmonary hypertension. Echocardiogram reveals normal systolic function, mild LVH, aortic sclerosis, and mild aortic stenosis and mild to moderate aortic insufficiency. Cardiology recommending to start the patient on beta sushil and heart rate has improved. Patient received 1 unit of irradiated packed red blood cells. Hemoglobin improved to 7.9 and symptoms had improved. Patients lungs are clear, S1 S2 auscultated abdomen is soft and nontender. Pat ient will be discharged home with close follow up as above. Please see medication reconciliation for a list of current medication. Thank you for allowing us to participate in the care of this patient. The impression and plan of care has been dictated by Miryam Morris Nurse Practitioner as directed. Dr. Mynor MD I have performed a history and physical examination and medical decision making of this patient, discussed the same with the dictator, and agree with the dictators assessment and plan as written, documented as a scribe. Based on total visit time, I have performed more than 50% of this visit. Patient Condition at Discharge: Stable Plan - Discharge Summary New Discharge Prescriptions: New Metoprolol Succinate (ER) [Toprol XL] 25 mg PO DAILY #30 tab Continue Ferrous Sulfate [Iron] 325 mg PO BID Cholecalciferol [Vitamin D3 (25 Mcg = 1000 Iu)] 50 mcg PO DAILY Rosuvastatin Calcium 5 mg PO HS amLODIPine [Norvasc] 10 mg PO HS Cyclobenzaprine [Flexeril] 5 mg PO HS Discontinued Losartan Potassium [Cozaar] 100 mg PO DAILY hydroCHLOROthiazide [Hydrodiuril] 12.5 mg PO DAILY Discharge Medication List Cholecalciferol [Vitamin D3 (25 Mcg = 1000 Iu)] 50 mcg PO DAILY 01/23/23 [History] Cyclobenzaprine [Flexeril] 5 mg PO HS 01/23/23 [History] Ferrous Sulfate [Iron] 325 mg PO BID 01/23/23 [History] Rosuvastatin Calcium 5 mg PO HS 01/23/23 [History] amLODIPine [Norvasc] 10 mg PO HS 01/23/23 [History] Metoprolol Succinate (ER) [Toprol XL] 25 mg PO DAILY #30 tab 01/25/23 [Rx] Follow up Appointment(s)/Referral(s): None,Stated [REFERRING] - 1-2 days Fernando Ayala MD [STAFF PHYSICIAN] - 1 Week Ambulatory/Diagnostic Orders: Complete Blood Count w/diff [LAB.AMB] Time Frame: 3 Days, Location: None Selected Patient Instructions/Handouts: Chest Pain (DC), Anemia (DC) Activity/Diet/Wound Care/Special Instructions: Follow up with your known PCP and your oncologist, Repeat labs in 2 to 3 days. Discharge Disposition: HOME SELF-CARE
== END 2023-01-25 13:57 | disposition home or self-care (01) ==
LOC: EC 14:56 → 6NMEDSUR 18:09
PROVIDERS: ADMIT Internal Medicine; ATTEND Internal Medicine
DX: D53.9 Nutritional anemia, unspecified (principal); R00.0 Tachycardia, unspecified; R07.89 Other chest pain; C92.10 Chronic myeloid leukemia, BCR/ABL-positive, not having achieved remission; I27.20 Pulmonary hypertension, unspecified; I35.0 Nonrheumatic aortic (valve) stenosis; I10 Essential (primary) hypertension; E78.5 Hyperlipidemia, unspecified; R71.8 Other abnormality of red blood cells; Z79.899 Other long term (current) drug therapy; Z98.49 Cataract extraction status, unspecified eye; Z98.890 Other specified postprocedural states; Z85.820 Personal history of malignant melanoma of skin; Z88.7 Allergy status to serum and vaccine; Z91.018 Allergy to other foods
CPT/HCPCS: 36430; 96361 ×3; 96360; 99285; 36415; 94760 ×2; 93005; 93306; 86900; 86901; 85379; 80053 ×2; 83735 ×2; 84484 ×2; 85025 ×3; 85610; 85730; 86850; 86920; 71046; 71275; G0378 ×3; P9016; Q9967